=== PATIENT | male | born 2000 | race African-American/Black ===

== ENCOUNTER 2024-11-22 02:51 | Emergency (ER) | payer SELFPAY ==
[~2024-11-22] VITALS: Ht 162.6 cm; Wt 59.0 kg
[2024-11-22 02:53] VITALS: PULSE 64; RESP 20; TEMP 98.2
[2024-11-22 06:38] VITALS: BP 119/88; O2SAT 98
== END 2024-11-22 04:41 | disposition home or self-care (01) ==
LOC: FSED 02:55
DX: S93.492A Sprain of other ligament of left ankle, initial encounter (principal); V86.79XA Person on outside of other special all-terrain or other off-road motor vehicles injured in nontraffic accident, initial encounter; Y93.53 Activity, golf
CPT/HCPCS: 99283